=== PATIENT | female | born 1945 | race Caucasian/White ===

== ENCOUNTER 2016-02-25 16:51 | Inpatient (IN) | payer OTHER, MEDICARE ==
[~2016-02-25] VITALS: Ht 157.5 cm; Wt 56.7 kg
--- NOTE | 2016-02-25 17:25 | NUR ---
PT STATES SHE HAS A COLD THAT HAS SETTLED IN HER CHEST. PT STATES SHE HAS BEEN COUGHING UP GREEN SPUTUM AT TIMES. PT DENIES FEVERS. PT SENT IN BY URGENT CARE BECAUSE THEY DID AN EKG ON HER AND SHE WAS HAVING VENTRICULAR PREMATURE COMPLEXES. PT DENIES CHEST PAIN OR SOB.
--- NOTE | 2016-02-25 19:31 | ED INFLUENZA/URI COMPLAINT ---
History of Present Illness General Chief Complaint: General Adult Stated Complaint: SIB URGENT CARE FOR URI SYMTOMS, "HEART ISSUES" Source: patient, old records Exam Limitations: no limitations Vital Signs & Intake/Output Vital Signs & Intake/Output Vital Signs Date Time Temp Pulse Resp B/P Pulse O2 O2 Flow FiO2 Ox Delivery Rate 02/24 2316 99.0 120 20 136/64 93 Room Air 02/246 91 02/24 2154 99.4 02/24 2142 Room Air 02/24 2139 99.4 02/24 2049 101.5 02/24 1951 101.6 129 18 167/86 92 02/24 1950 91 02/24 1726 97.0 134 18 131/85 93 Room Air Allergies Coded Allergies: No Known Allergies (02/25/16) Reconcile Medications Aspirin (Ecotrin*) 325 MG TABLET. 1 TAB PO DAILY HEART/BLOOD (Reported) Triage Note: PT STATES SHE HAS A COLD THAT HAS SETTLED IN HER CHEST. PT STATES SHE HAS BEEN COUGHING UP GREEN SPUTUM AT TIMES. PT DENIES FEVERS. PT SENT IN BY URGENT CARE BECAUSE THEY DID AN EKG ON HER AND SHE WAS HAVING VENTRICULAR PREMATURE COMPLEXES. PT DENIES CHEST PAIN OR SOB Triage Nurses Notes Reviewed? yes Onset: Abrupt Duration: week(s): (1), constant Timing: recent history Severity: moderate Severity Numbers: 6 Prior Episodes/Possible Cause: no prior episodes No Modifying Factors: none Associated Symptoms: cough, fever/chills, nasal congestion, nasal drainage HPI: 70-year-old female presents sent in by urgent care for evaluation after she was seen there earlier today had a chest x-ray and EKG performed. The patient states that for the past week she's had a head cold that is now in her chest complaining of a productive cough of yellow to green sputum associated with intermittent shortness of breath. She is an active smoker however denies history of COPD or asthma. No chest pain or palpitations. She reports a subjective fevers and chills and reports since febrile here no sore throat no congestion at this time however states that the symptoms began with the above. She denies any abdominal pain nausea vomiting or diarrhea. Multiple sick contacts at home with similar symptoms (TIMI CARBAJAL,PAUL) Past History Travel History Traveled to [place] past 21 day No Medical History Any Pertinent Medical History? none Surgical History Surgical History: none Psychosocial History What is your primary language Iraqi Tobacco Use: Current Daily Use Daily Tobacco Use Amount/Type: => 5 Cigarettes daily ETOH Use: occasional use Illicit Drug Use: denies illicit drug use Family History Hx Contributory? No (PAUL VIRK) Review of Systems Review of Systems Constitutional: Reports: see HPI. All Other Systems: Reviewed and Negative Comments Review of systems: See HPI, All other systems negative. Constitutional, chills fever, no malaise no weight loss HEENT: No visual changes sore throat congestion, no ear pain Cardiovascular: No chest pain , no palpitation , no orthopnea no ankle swelling Skin, no jaundice no rashes, no change in skin Respiratory: dyspnea cough no sputum no hemoptysis GI: No nausea no vomiting, no diarrhea, no bloating/constipation : No dysuria No hematuria, no frequency, no discharge Muscle skeletal: No joint pain, no joint swelling, no back pain, no neck pain, Neurologic: No numbness no headache Psych: No stress Heme/endocrine: No bruising no bleeding Immunology: No lymphadenopathy, (PAUL VIRK) Physical Exam Physical Exam General Appearance: well developed/nourished, no apparent distress, alert, awake Ears, Nose, Throat: normal ENT inspection, moist mucous membrane, hearing grossly normal, Tympanic normal Comments: Well-developed well-nourished patient in no apparent distress. Head/Face: Atraumatic, no maxillary/frontal sinus tenderness, no facial swelling Eyes: PERRL, EOMI, no conjunctival injection. No nystagmus Ear:External auditory canal and Tympanic membranes clear, no erythema, no FB. Nose: atraumatic.Normal inspection: No bleeding, no septal hematoma Throat: Moist mucous membranes.Pharynx normal. No pharyngeal erythema/exudate seen. No stridor/drooling or assymetry. No swelling or edema. Neck: Supple, no lymphadenopathy, FROM Back: FROM, Nontender Cardiovascular: Tachycardic, regular rhythm no murmurs rubs or gallops, Respiratory: Chest nontender.There were no bony deformities, no asymmetry. No respiratory distress. Patient speaking in full complete sentences. wheezing, no rhonchi no rales Extremities: full range of motion Neuro: Alert and oriented x3 Skin: Warm & dry;No appreciable rash on exposed skin Psych: Mood affect normal, normal memory normal judgment. Core Measures Severe Sepsis Present: No Septic Shock Present: No (TIMI CARBAJAL,PAUL) Progress Differential Diagnosis: influenza, pneumonia, pharyngitis, sinusitis, bronchitis , viral syndrome, copd, asthma, pe, ami, electrolyte abnormality Plan of Care: Orders Procedure Date/time Status Regular Diet 02/25 B Active CBC WITHOUT DIFFERENTIAL 02/25 06 Active BASIC ELECTROLYTES PLUS BUN&CR 02/25 06 Active Saline Lock 02/24 233 Active Pathway - chart 02/24 2331 Active House Staff 02/24 2331 Active STREP PNEUMO URINARY ANTIGEN 02/24 2331 Active LEGIONELLA URINARY ANTIGEN 02/24 2331 Active LOWER RESPIRATORY CULTURE 02/24 233 Active Code Status 02/24 2332 Active Intake & Output 02/24 2317 Active OXYGEN SETUP (GEN) 02/24 230 Active Saline Lock 02/24 230 Active Admit to inpatient 02/24 2300 Active Vital Signs 02/24 2300 Active Activity/Ambulation 02/24 230 Active Code Status 02/24 2300 Complete Add-on Test (ER Only) 02/24 2254 Active Patient Data 02/24 2251 Active PHOSPHORUS 02/24 2042 Active MAGNESIUM 02/24 2042 Active LACTIC ACID 02/24 2042 Active GLYCOSYLATED HGB 02/24 204 Active Saline Lock 02/24 194 Active RAPID VIRAL INFLUENZA A 02/24 194 Complete BLOOD CULTURE 02/24 194 Active TROPONIN LEVEL 02/24 194 Active COMPREHENSIVE METABOLIC PANEL 02/24 194 Active CBC WITHOUT DIFFERENTIAL 02/24 194 Complete EKG 02/24 1700 Active TRC EVALUATION (GEN) 02/24 UNK Active Lab Add-on Test 02/24 UNK Active VTE Mechanical Prophylaxis 02/24 UNK Active Vital Signs 02/24 UNK Active Intake & Output 02/24 UNK Active Current Medications Sig/Donato Start time Last Medication Dose Stop Time Status Admin Azithromycin 500 MG 0 02/250 AC (Zithromax) Dextrose/Water 250 ML (D5W) Ceftriaxone Sodium 1,000 MG 0 02/25 2200 AC (Rocephin) Methylprednisolone 20 MG Q6 02/25 0600 UNVr (Solumedrol) Acetaminophen 650 MG Q6P PRN 02/24 2330 AC (Tylenol) Ibuprofen 600 MG Q6P PRN 02/24 2330 UNVr (Motrin) Oxycodone HCl 5 MG Q6H PRN 02/24 233 UNVr (Roxicodone) Heparin Sodium 5,000 UNIT Q8 02/24 2321 UNVr (Porcine) Laboratory Tests 02/25/162041: Hemoglobin A1c Pending 02/25/162041: Anion Gap 14, Estimated GFR > 60, BUN/Creatinine Ratio 18.6, Glucose 144 H, Lactic Acid 0.7, Calcium 8.2 L, Phosphorus Pending, Magnesium Pending, Total Bilirubin 0.7, AST 27, ALT 33, Alkaline Phosphatase 95, Troponin I < 0.01, Total Protein 5.9 L, Albumin 3.0 L, Globulin 2.9, Albumin/Globulin Ratio 1.0 L, CBC w Diff NO MAN DIFF REQ, RBC 3.73 L, MCV 89.8, MCH 30.5, RDW 12.8, MPV 9.3, Gran % 87.4 H, Lymphocytes % 6.4 L, Monocytes % 6.1, Eosinophils % 0, Basophils % 0.1, Absolute Granulocytes 13.7 H, Absolute Lymphocytes 1.0 L, Absolute Monocytes 1.0 H, Absolute Eosinophils 0, Absolute Basophils 0, PUBS MCHC 34.0 Microbiology 02/24 2331 URINE ROUT: Legionella Antigen - ORD 02/24 2331 URINE ROUT: Streptococcus pneumoniae Antigen (M - ORD 02/24 2331 LOWER RESP: Respiratory Culture - ORD 02/24 2331 LOWER RESP: Gram Stain - ORD 02/24 2134 BLOOD: Blood Culture - RECD 02/24 2041 BLOOD: Blood Culture - RECD 02/25/2016 7:50:37 PM patient was seen by me immediately being upon back to pod 3. Labs ordered DuoNeb ordered patient febrile 100.8 on my a evaluation xray reviewed with dr fernandes- hyperinflated lungs no obvious pna 02/25/2016 9:42:19 PM repeat evaluation discussed with patient at length all of her lab results sats remain 91-92%. Patient has not seen a primary physician in 10 years no history of known COPD or asthma however she is an active smoker given fever leukocytosis breathing I discussed with her that I believe premature discharge would BE medically harmful and I was openly recommending admission which at this time the patient is refusing. We will repeat the breathing treatment. Discussed with her the harms of leaving prematurely and what can happen potentially. We will reevaluate after second breathing treatment Jelenan 1 g azithromycin 500 mg IV ordered 1045 pt sats 90%-91% d/w pt again that i believedischarge would be harmful, pt at thsi time now accepting admission, case d/w dr dias will admit (PAUL VIRK) Initial ED EKG: SINUS TACH AT 120, NO ACUTE st SEGMENT CHANGES pvc, NORMAL AXIS (PAUL VIRK) Departure Departure Time of Disposition: 2238 Disposition: STILL A PATIENT Condition: Stable Clinical Impression Primary Impression: Bronchitis Referrals: PEPE DUTTA,SUZANNE Briceño (PCP/Family) Additional Instructions: Levaquin as directed. Medrol Dosepak as directed pro-air as directed. Close follow-up with primary care physician dr campbell this week. As discussed it was recommended by myself that you be admitted to the hospital given her fever or elevated white blood cell count and your symptoms. You've declined admission at this time returning immediately if you change your mind you develop worsening of her symptoms despite medications or you have any other concerns. Your medications were sent to your pharmacy. Stop smoking Departure Forms: Customer Survey General Discharge Information Admission Note Spoke With: YASMIN DIAS MD Documentation of Exam: Documentation of any treatments & extenuating circumstances including Concerns Regarding Discharge (functional status, medication knowledge or non-compliance, living conditions, etc.) that warrant an admission rather than observation:pt hypoxic with ambulation, premature discharge would be medically harmful, iv steroids, iv abx, resp tx prn, pt active smoker with most likely undiagnosed copd, remains febrile tacycardic, i believe premature discharge would be medically harmful, poor candidate for by mouth antibiotics and steroids (PAUL VIRK) PA/CONSTRUCTION CONSULTANT Co-Sign Statement Statement: ED Attending supervision documentation- x I saw and evaluated the patient. I have also reviewed all the pertinent lab results and diagnostic results. I agree with the findings and the plan of care as documented in the PA's/CONSTRUCTION CONSULTANT's documentation. [] I have reviewed the ED Record and agree with the PA's/CONSTRUCTION CONSULTANT's documentation. [] Additions or exceptions (if any) to the PAs/CONSTRUCTION CONSULTANT's note and plan are summarized below: [] (BAILEY DUTTA,WILMER)
--- NOTE | 2016-02-25 19:32 | NUR ---
TO ROOM 21 IN W/C. PT THEN NOTED AMBULATING TO RESTROOM DOWN THE ATKINSON WITH STEADY GAIT WITHOUT APPARENT DISTRESS.
[2016-02-25] MEDS ORDERED: ASPIRIN EC325 M2 PO (19:34)
--- NOTE | 2016-02-25 19:41 | NUR ---
SOLOMON CAPELLAN AT BEDSIDE FOR EVAL
[2016-02-25 20:49] LABS: ABSOLUTE BASOPHIL COUNT 0 /CUMM (0.0-0.2); ABSOLUTE EOSINOPHIL COUNT 0 /CUMM (0.0-0.7); ABSOLUTE GRANULOCYTE CT 13.7 /CUMM (1.4-6.5); BASOPHIL % 0.1 % (0.0-2.0); EOSINOPHIL % 0 % (0-5); HEMATOCRIT 33.5 % (37-47); MEAN CORPUSCULAR HGB 30.5 PG (27.0-31.0); MEAN CORPUSCULAR VOLUME 89.8 FL (81.0-99.0); MEAN PLATELET VOLUME 9.3 FL (7.4-10.4); PLATELET COUNT 157 /CUMM (130-400); RBC DISTRIBUTION WIDTH 12.8 % (11.5-14.5); RED BLOOD CELL CT 3.73 /CUMM (4.20-5.40); WHITE BLOOD CELL COUNT 15.7 /CUMM (4.8-10.8)
--- NOTE | 2016-02-25 20:51 | NUR ---
1ST SET BLOOD CX AND BLOODWORK (SST/LAV/ARIZMENDI/BLUE/PINK) AND FLU SWAB COLLECTED AND SENT. IVF RUNNING. MEDICATED PER EMAR.
[2016-02-25 20:52] LABS: GRANULOCYTE % 87.4 % (42.2-75.2)
--- NOTE | 2016-02-25 21:42 | NUR ---
RESP CALLED FOR CHRISTAB.
--- NOTE | 2016-02-25 21:56 | NUR ---
PT MEDICATED WITH ROCEPHIN, AND ZITHROMAX INFUSING PER EMAR.
--- NOTE | 2016-02-25 23:03 | History & Physical ---
ANDREAS DUTTAYANCI 02/25/16 4123: General Information and HPI MD Statement: I have seen and personally examined KASANDRA BAH and documented this H&P. The patient is a 70 year old F who presented with a patient stated chief complaint of [head and chest cold]. Source of Information: patient Exam Limitations: no limitations History of Present Illness: 70-year-old female with no significant PMH presented to the ED for CC of head and chest cold, and asked by urgent care clinic to get her heart checked out. Pt was in her normal state of health until Monday, when she started feeling a little achy, with cough productive of thick green sputum. She has been taking robitussin without relief. The cough keeps her up at night and she feels better using 2 pillows rather than her usual 1 pillow to sleep. She also complains of nasal congestion and dry mouth. She has some palpitations. She also gets short of breath worse on lying down and on exertion, especially when she is coughing. 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 She has nevere received flu or pneumonia vaccine. No recent travel. She denies fever or chills. Denies chest pain. She went to the urgent care clinic today as her symptoms have not gotten better. She was found to have PVCs on EKG and was told to get it evaluated further in the ED. She was found to be wheezing in the ED, and felt better after the second duoneb tx in the ED. FH: no significant FH SH: lives at home with , independent, smoke 5-10cig / day X 40 years, smoke indoor and outdoor. Drinks wine occassionally. Denies illicit drug use. Allergies: none Meds: aspirin for headache, robitussing for cough Allergies/Medications Allergies: Coded Allergies: No Known Allergies (02/25/16) Home Med list Aspirin (Ecotrin*) 325 MG TABLET. 1 TAB PO DAILY HEART/BLOOD (Reported) Past History Travel History Traveled to [place] past 21 day No Surgical History Surgical History: cataract surgery Past Family/Social History Family History Relations & Conditions if any Relation not specified for: *No pertinent family history Psychosocial History Where do you live? Home Who Do You Live With? spouse Services at Home: None Primary Language: Maltese Smoking Status: Current Everyday Smoker ETOH Use: occasional use Illicit Drug Use: denies illicit drug use Functional Ability ADLs Independent: dressing, eating, toileting, bathing. Ambulation: independent IADLs Independent: shopping, housework, finances, food prep, telephone, transportation , medication admin. Review of Systems Review of Systems Constitutional: Denies: chills, fever. EENTM: Reports: nasal congestion. Denies: visual changes. Cardiovascular: Reports: orthopena, palpitations. Denies: chest pain, edema. Respiratory: Reports: cough, short of breath, sputum production. GI: Denies: abdominal pain, bloating, constipation, diarrhea, nausea, bloody stool, changes in stool, vomiting. Genitourinary: Denies: dysuria. Exam & Diagnostic Data Last 24 Hrs of Vital Signs/I&O Vital Signs Date Time Temp Pulse Resp B/P Pulse O2 O2 Flow FiO2 Ox Delivery Rate 02/24 2316 99.0 120 20 136/64 93 Room Air 02/246 91 02/24 2154 99.4 02/24 2142 Room Air 02/24 2139 99.4 02/24 2049 101.5 02/24 1951 101.6 129 18 167/86 92 02/24 1951 91 02/24 1726 97.0 134 18 131/85 93 Room Air Intake & Output 02/25 0800 02/25 0000 02/24 1600 Intake Total 1350 Output Total Balance 1350 Intake, IV 1350 Patient 54.431 kg Weight Physical Exam General Appearance Alert, Oriented X3, Cooperative, No Acute Distress Skin seborrheic keratosis on the back HEENT Atraumatic, PERRLA, EOMI, Mucous Membr. moist/pink, tender frontal and maxillary sinus , postnasal drip Neck Supple, No JVD, +2 Carotid Pulse wo Bruit Lymphatic Axillary nl, Cervical nl Cardiovascular Regular Rate, Normal S1, Normal S2, No Murmurs, Gallops, Rubs, tachycardic Lungs diffuse decreased breath sound, mild accessory muscle use Abdomen Normal Bowel Sounds, Soft, No Tenderness Neurological Normal Speech Extremities No Edema Vascular Normal Pulses, Pulses Symmetrical Last 24 Hrs of Labs/Alvin: Laboratory Tests 02/25/162041: Hemoglobin A1c Pending 02/25/162041: Anion Gap 14, Estimated GFR > 60, BUN/Creatinine Ratio 18.6, Glucose 144 H, Lactic Acid 0.7, Calcium 8.2 L, Phosphorus 2.4 L, Magnesium 1.6, Total Bilirubin 0.7, AST 27, ALT 33, Alkaline Phosphatase 95, Troponin I < 0.01, Total Protein 5.9 L, Albumin 3.0 L, Globulin 2.9, Albumin/Globulin Ratio 1.0 L, CBC w Diff NO MAN DIFF REQ, RBC 3.73 L, MCV 89.8, MCH 30.5, RDW 12.8, MPV 9.3, Gran % 87.4 H, Lymphocytes % 6.4 L, Monocytes % 6.1, Eosinophils % 0, Basophils % 0.1, Absolute Granulocytes 13.7 H, Absolute Lymphocytes 1.0 L, Absolute Monocytes 1.0 H, Absolute Eosinophils 0, Absolute Basophils 0, PUBS MCHC 34.0 Microbiology 02/24 2331 URINE ROUT: Legionella Antigen - ORD 02/24 2331 URINE ROUT: Streptococcus pneumoniae Antigen (M - ORD 02/24 2331 LOWER RESP: Respiratory Culture - ORD 02/24 2331 LOWER RESP: Gram Stain - ORD 02/24 2134 BLOOD: Blood Culture - RECD 02/24 2041 BLOOD: Blood Culture - RECD Diagnostic Data EKG Results Sinus tachycardia, rate 121 CXR Results No PNA Assessment/Plan Assessment: 70-year-old female with no significant PMH presented to the ED for CC of head and chest cold, and asked by urgent care clinic to get further evaluation of PVCs found on EKG. Pt was admitted to and the following problems addressed. # Upper respiratory infection with acute bronchitis # Possible COPD exacerbation? (significant smoking hx, never been diagnosed with COPD) - rapid flu negative - CXR did not reveal PNA. Pt has not received PNA vaccine. - Spiked temp to 101.6 in the ED . WBC 15.7 . - Given duoneb x 2 in ED - Given 1 time 125 mg solumedrol in ED - Given ceftriaxone and azithromycin in ED * Follow BC X 2 , LRC, urine legionella, strep pneumo, UA, UC * Continue azithromycin * Continue methylprednisolone 20 mg q6 * Mucinex 600 q 12 * Repeat CXR tomorrow * Consider pulm consult in am * PFT as outpatient # Hypokalemia - K 3.3 * Give one time 40 meq kdur # Hypomagnesiumia - Mg 1.6 * Mag ox 400 daily # Hypophosphatemia - Phos 2.4 * Neutrophos 250 mg PC and bedtime X 3 doses # Tachycardia, could be secondary to albuterol administration or fever - trop < 0.01 - probnp 2640 H * Repeat EKG and trop at 6am * Consider echocardiogram # Nicotine dependence - refused nicotine patch Mild pp Diet: regular DVT ppx: heparin and alps FULL CODE As Ranked By This Provider Problem List: 1. Upper respiratory infection with cough and congestion Core Measures/Miscellaneous Acute Coronary Syndrome ACS Diagnosis: No Cerebrovascular Accident CVA/TIA Diagnosis: No Congestive Heart Failure CHF Diagnosis: No Venous Thromboembolism VTE Risk Factors: Acute medical illness, Age > 40, Smoking VTE Prophylaxis Ordered Inpt: Mech & Pharm No Mech VTE prophylaxis d/t: No contraindications No VTE Pharm Prophylaxis d/t: No contraindications VTE Diagnosis: No VTE Type: NONE VTE Confirmed by (Test): NONE Severe Sepsis Severe Sepsis Present: No Septic Shock Septic Shock Present: No Miscellaneous Documentation Attending Case Discussed With: YASMIN MASSEY MD Primary Care Physician: SUZANNE CANTU MD Patient sees these Specialists none Level of Patient Care: General Medicine TONE BARRIGA 02/26/16 0139: Resident Review Statement Resident Statement: examined this patient, discussed with manager internship, agreed with manager internship, discussed with family, reviewed EMR data (avail), reviewed images, amended to note Other Findings: This is 70-year-old female with no significant past medical history presented to the ED for urgent care unit with a chief complaint of head and chest cold, and asked by urgent care clinic to get her heart checked out. 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 Reports some wheezing. She denies any fever, chills, chest pain or discomfort, abdominal pain , diarrhea, vomiting, constipation. Physical examination, laboratory imaging as above. She smoked 1 pack per day for 40 years. Problem list: -Acute bronchitis with undiagnosed possible COPD -Hypokalemia, hypomagnesemia, hypophosphatemia -Leukocytosis. -Tachycardia. Plan: -Admit patient to general medicine floor -Vitals every shift -Continue IV ceftriaxone and IV azithromycin -Start IV Solu-Medrol 20 mg every 6 hours -Start patient on Mucoinex, TRC nebs as needed -Streptococcus, Legionella urine antigen, sputum culture. -Repeat chest x-ray in the morning for evaluation -Potassium, magnesium and phosphate supplement -Repeat EKG in the morning -Repeat CBC and basic panel electrolytes in the morning -Smoking cessation consultation -Regular diet -Pain pathway -DVT prophylaxis subcutaneous heparin -Full code YASMIN MASSEY 02/26/16 0205: Attending MD Review Statement Attending Statement Attending MD Statement: examined this patient, discuss w/resident/PA/PATHOLOGY LABORATORY AIDES TEACHER, agreed w/resident/PA/PATHOLOGY LABORATORY AIDES TEACHER, discussed with family, reviewed EMR data (avail), reviewed images, amended to note Attending Assessment/Plan: CC: Sent by urgent care for fever or productive cough and increased heart rate PMH: None, not on any medication except aspirin Patient started to notice upper respiratory and sinus congestion, followed by productive cough with yellow-green sputum. She also developed labored breathing according to her , patient increasing 2 pillows to sleep after this symptom started. She was not getting better so she went to urgent care where she was found to have increased heart rate and was sent to ER for evaluation. 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 She denies chest pain, chest congestion, leg swelling, dyspnea on exertion, palpitation, dizziness. Long-standing smoking history. Vitals: T max 101.6, HR in 120s, RR 20, BP and O2 saturation in acceptable range. On examination: A O 3, mild respiratory distress, no JVD, no lymphadenopathy, pharyngeal congestion present, sinus tenderness present over the maxillary sinus. CVS: S1-S2, tachycardia, no murmurs. RS: Diffusely decreased breathing sounds. Abdomen: Soft, NT, ND, bowel sounds present. No pedal edema, no obvious skin rashes. Labs: WBC 15.1, hemoglobin 11.4, potassium 3.3, otherwise BMP and LFT unremarkable. Anion gap 14, lactate 0.7 Imaging: Patient has a CD with her recent chest x-ray done today in urgent care reviewed by ER physician negative for pneumonia. EKG shows sinus tachycardia with intermittent premature complexes. A and P #1 suspected acute bronchitis: Precipitated by URI, patient may have baseline undiagnosed COPD. Patient is very tight on auscultation chest, even with nebulization treatment. Continue IV methylprednisolone, azithromycin, sputum cultures, nebulization treatments. Patient will need outpatient PFT once stabilized. #2 fever: Probably secondary to upper respiratory infection, check blood culture , sputum culture, UA if not done. Continue azithromycin. Repeat chest x-ray tomorrow to rule out any developing pneumonia. #3 tachycardia: patient has sinus tachycardia, this can be secondary to fever or albuterol treatment. Does not have any elevated JVD, no pleuritic chest pain, no chest heaviness. Initial troponin negative. Repeat EKG every 8 hourly 2. Check proBNP. Blood pressure in normal range, no acute volume loss or bleeding as a cause to precipitate tachycardia. Continue gentle hydration 75 mL per hour for 1 L then stop. #4 DVT prophylaxis with Lovenox, adequate pain control.
--- NOTE | 2016-02-25 23:27 | NUR ---
HOUSE STAFF IN TO EVAL PT
--- NOTE | 2016-02-25 23:53 | NUR ---
PATIENT ASSIGNED TO ROOM 232-1
--- NOTE | 2016-02-26 00:20 | NUR ---
REPORT GIVEN TO DARIA BHATIA.
[2016-02-26 01:40] VITALS: BP 120/60
--- NOTE | 2016-02-26 01:40 | Admission Certification ---
Admission Certification Certification Statement - As attending physician, I certify that at the time of - admission, based on clinical presentation, severity of - symptoms, need for further diagnostic testing and - therapeutic interventions, and risk of adverse outcomes - without in-hospital treatment, in my clinical assessment, - this patient requires an acute hospital stay for a minimum - of two nights or longer. I have also considered psychsocial - factors such as support system, advanced age, financial - issues, cognitive issues, and failed out-patient treatments, - past re-admission history, safety of patient, and lack of - compliance as applicable. Specific rationale supporting this admission is: Fever, acute bronchitis, tachycardia
[2016-02-26 06:39] VITALS: BP 138/70
[2016-02-26 08:02] LABS: ABSOLUTE BASOPHIL COUNT 0 /CUMM (0.0-0.2); ABSOLUTE EOSINOPHIL COUNT 0 /CUMM (0.0-0.7); ABSOLUTE GRANULOCYTE CT 11.4 /CUMM (1.4-6.5); ABSOLUTE LYMPH COUNT 0.5 /CUMM (1.2-3.4); ABSOLUTE MONOCYTE COUNT 0.1 /CUMM (0.10-0.60); BASOPHIL % 0 % (0.0-2.0); EOSINOPHIL % 0 % (0-5); HEMATOCRIT 31.8 % (37-47); MEAN CORPUSCULAR HGB CONC 34.3 G/DL (33.0-37.0); MEAN CORPUSCULAR VOLUME 90.3 FL (81.0-99.0); MEAN PLATELET VOLUME 9.7 FL (7.4-10.4); PLATELET COUNT 144 /CUMM (130-400); RED BLOOD CELL CT 3.53 /CUMM (4.20-5.40); WHITE BLOOD CELL COUNT 11.9 /CUMM (4.8-10.8)
--- NOTE | 2016-02-26 08:18 | PN- Housestaff ---
See Addendum Subjective Follow-up For: Shortness of breath elevated Pro-BNP w/o Hx of Cardiomypathy Bronchitis Complaints: no complaints Subjective: jaimie was visietd and interviewed today. She is very anxious about the fact that she was " unnecessarily" admitted to the hospital. She is not offering any particular complaints. In R/A, in no acute distress. VS are stable. Review of Systems Constitutional: Denies: chills, diaphoresis, fever, malaise, weakness, unexplained weight loss. EENTM: Denies: blurred vision, double vision, visual changes, eye pain, eye drainage, eye tearing, icterus, ear discharge, ear pain, ear redness, hearing changes, nasal congestion, epistaxis, nasal pain, throat pain, throat swelling, mouth pain, tooth pain. Cardiovascular: Denies: chest pain, edema, orthopena, palpitations, peripheral edema, syncope. Respiratory: Denies: cough, hemoptysis, orthopnea, short of breath, sputum production, stridor, wheezing. Gastrointestinal: Denies: abdominal pain, bloating, constipation, diarrhea, distention, bowel incontinence, melena, nausea, bloody stool, changes in stool, vomiting, steatorrhea. Genitourinary: Denies: discharge, dysuria, frequency, hematuria, hesitation, nocturia, pain, urgency. Musculoskeletal: Denies: back pain, gout, joint pain, joint swelling, muscle pain, muscle stiffness, neck pain. Objective Last 24 Hrs of Vital Signs/I&O Vital Signs Date Time Temp Pulse Resp B/P Pulse O2 O2 Flow FiO2 Ox Delivery Rate 02/25 0639 97.4 93 20 138/70 92 Room Air 02/25 0140 97.5 111 22 120/60 93 Room Air 02/24 2316 99.0 120 20 136/64 93 Room Air 02/24 2216 91 02/24 2154 99.4 02/24 2142 Room Air 02/24 2139 99.4 02/24 2049 101.5 02/24 1951 101.6 129 18 167/86 92 02/24 1950 91 02/24 1726 97.0 134 18 131/85 93 Room Air Intake & Output 02/25 1600 02/25 0800 02/25 0000 Intake Total 1350 Output Total Balance 1350 Intake, IV 1350 Patient 120 lb Weight Physical Exam General Appearance: Alert, Oriented X3, Cooperative, No Acute Distress Skin: No Rashes, No Breakdown, No Significant Lesion HEENT: Atraumatic, PERRLA, EOMI, Mucous Membr. moist/pink Lungs: Clear to Auscultation, Normal Air Movement Assessment/Plan Assessment: 70 y/o woman without significant past medical history presented with labored breathing and worsening orthopnea, preceded by her upper respiratory tract symptoms infection (productive cough with green sputum denies fever and chills). 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 Recently had an outbreak of upper respiratory tract infection. He was evaluated in the emergency room and found to be tachycardic. She denies chest pain, chest congestion, leg swelling, dyspnea on exertion, palpitation, dizziness. Long-standing smoking history. Pertinent findings in Physical exam: Alert and oriented 3 , lying comfortably in bed 45 elevation the head , in room air in no acute distress ; head and neck : No JVD mucous membranes are moist and pink ; CVS: S1-S2, tachycardia, no murmurs. RS: Decreased breathe sounds no crackles no wheezes. The remainder of the physical exam was unremarkable. Pertinent findings in lab Labs: WBC 1.9, hemoglobin 10.4, Hct: 31.8 potassium 4.1, pro-BNP: 2640 EKG: sinue Tachycardia, Short [place] interval, No acute st T segment change, No Left or right BB, P waves are uniform and normal in apearance A and P 70-year-old man with history of prolonged smoking/not clear medical record presented with worsening the septae on exertion and orthopnea, was preceded by an acute upper respiratory tract infection. List of differential diagnosis: #1 bronchitis, #2 COPD(long-time smoker; no official diagnosis of COPD); #1 suspected acute bronchitis: * Patient could be switched to by mouth prednisone 40 mg for 5 days * Continue IV antibiotics * Obtain a chest x-ray * Refer to employee health nurse to follow-up; patient needs baseline pulmonary function test and his spirometry * Low-dose CT scan for cancer screening as an outpatient * Continue guanfenesine ER Tab 600 Q12 * Albuterol inhaler 3 mL every 6h as needed * TRC nebulizer [id number] as needed #2 fever: Probably secondary to upper respiratory infection, check blood culture , sputum culture, UA if not done. * Continue azithromycin * CXR- she refused #3 tachycardia: patient has sinus tachycardia, and orthopnea+ elevated pro-bnp and Hx of smoking+ ??? DM and HTN * Likehood of Heart failure; in the setting of Ischemic cardiomyopathy * patient is not agreable with any work up: echo and cardiology visit #4 Hyponatremia- patientr refused work up #5 DVT prophylaxis with Lovenox, adequate pain control. Problem List: 1. Bronchitis 2. Elevated brain natriuretic peptide (BNP) level Pain Ratin Pain Location: none Pain Goal: pain free Pain Plan: tylenol Tomorrow's Labs & Rationales: none Discharge Plan Discharge Disposition: home Stable for Discharge? Yes Anticipated Discharge (Day): today
[2016-02-26 09:17] LABS: GRANULOCYTE % 95.4 % (42.2-75.2)
--- NOTE | 2016-02-26 10:57 | Patient Discharge Instructions ---
Discharge Instructions General Discharge Information You were seen/treated for: Bronchitis elevated pro-BNP electrolyte imbalance ?? DM ?? COPD Special Instructions: #1 please follow-up with Dr. Ramirez to establish primary care #2 is follow-up with Dr. Hernandez for cardiac workup #3 Please follow up with Dr. Trivedi upon discharge Diet Continue normal diet: No Recommended Diet: Heart Healthy Activity Full Activity/No Limits: Yes Activity Self Limited: Yes Acute Coronary Syndrome Inclusion Criteria At DC or during hospital stay patient has or had the following: ACS DIAGNOSIS No Discharge Core Measures Meds if any: Prescribed or Continued at Discharge Meds if any: NOT Prescribed or Continued at Discharge Congestive Heart Failure Inclusion Criteria At DC or during hospital stay patient has or had the following: CHF DIAGNOSIS No Discharge Core Measures Meds if any: Prescribed or Continued at Discharge Meds if any: NOT Prescribed or Continued at Discharge Cerebrovascular accident Inclusion Criteria At DC or during hospital stay patient has or had the following: CVA/TIA Diagnosis No Discharge Core Measures Meds if any: Prescribed or Continued at Discharge Meds if any: NOT Prescribed or Continued at Discharge Venous thromboembolism Inclusion Criteria VTE Diagnosis No VTE Type NONE VTE Confirmed by (Test) NONE Discharge Core Measures - Per Current guidelines, there needs to be overlap - treatment for the first 5 days of Warfarin therapy. - If discharged on Warfarin prior to 5 days of - overlap therapy, the patient will need to be - assessed for post discharge needs including - *Post discharge parental anticoagulation - *Warfarin and/or parental anticoagulation education - *Follow up date to check INR post discharge At least 5 days overlap therapy as Inpatient No Meds if any: Prescribed or Continued at Discharge Note: Overlap Therapy is Warfarin and Anticoagulant Meds if any: NOT Prescribed or Continued at Discharge
[2016-02-26] MEDS ORDERED: GUAIFENESIN ER600 MG PO (10:59)
[2016-02-26] MEDS ORDERED: AZITHROMYCIN250 M1 PO (10:59)
[2016-02-26] MEDS ORDERED: PREDNISONE20 M1 PO (10:59)
--- NOTE | 2016-02-26 11:10 | Discharge Summary ---
Visit Information Visit Dates Admission Date: 02/25/16 Discharge Date: 02/28/16 Hospital Course Course Attending Physician: YASMIN MASSEY MD Primary Care Physician: no Known PCP Hospital Course: 70-year-old man with history of prolonged smoking/not clear medical record presented with worsening the septae on exertion and orthopnea, was preceded by an acute upper respiratory tract infection. List of differential diagnosis: #1 bronchitis, #2 COPD(long-time smoker; no official diagnosis of COPD); #1 acute bronchitis with fever and leukocytosis; out patient CXR: no evidence of pneumonia:she was started on IV Azithro and IV cefteriaxone in the ED and IV fluid was initiated as well. Patient Leukocytosis improved and, her antibiotics were switched to PO Azithro and Po prednisone.Plan to follow up with PCP (Dr. James DUTTA) as an out patient. #2 Elevated pro-BNP and tachycardia and worsening orthopnea: patient has sinus tachycardia, and orthopnea+ elevated pro-bnp and Hx of smoking+ ??? DM and HTN . In constalation of Hx and lab findings increases the likehood of heart failure 2 /2 Ischemic cardiomyopathy. Patient, needs Echocardiography. She intend to follow up with a drafter electrical as an outpatient. Information was provided. #4 Hyponatremia- patient refused work up. She is stable. Follow up with PCP Allergies: Coded Allergies: No Known Allergies (02/25/16) Pertinent Lab Results: Pertinent findings in lab Labs: WBC 1.9, hemoglobin 10.4, Hct: 31.8 potassium 4.1, pro-BNP: 2640 EKG: sinue Tachycardia, Short [place] interval, No acute st T segment change, No Left or right BB, P waves are uniform and normal in apearance Disposition Summary Disposition Principal Diagnosis: Bronchitis Elevated proBNP Additional Diagnosis: Electrolyte imbalance: hypomagnesemia hypophosphatemia and borderline hyponatremia sodium 133 Discharge Disposition: home or self care Discharge Instructions General Discharge Information Code Status: Full Code Patient's Diet: Heart healthy diet Patient's Activity: Full; as tolerated Follow-Up Instructions/Appts: Please follow-up with Dr. James DUTTA to establish primary care Follow with Dr. Hernandez for cardiac work up Medications at Discharge Discharge Medications: Continue taking these medications: Aspirin (Ecotrin*) 325 MG TABLET. 1 Tablet ORAL DAILY Comments: NOT TAKEN IN HOSPITAL Start taking the following new medications: Azithromycin (Azithromycin) 250 MG TABLET 1 Tablet ORAL DAILY Days = 2 No Refills Comments: Last Taken: 02/28/16 Time: 9 AM Guaifenesin (Guaifenesin ER) 600 MG TAB.ER.12H 1 Tablet ORAL EVERY 12 HOURS Qty = 12 No Refills Comments: Last Taken: 02/28/16 Time: 9 AM Fluticasone Propionate (Fluticasone Propionate) 50 MCG/ACTUATION SPRAY.SUSP 2 [place] In the nose DAILY Days = 7 No Refills Comments: Last Taken: 02/28/16 Time: 9AM Sodium Chloride (Deep Sea) 0.65 % SPRAY 2 [place] In the nose EVERY 4 HOURS NEEDED as needed for CONGESTION Days = 7 No Refills Comments: Last Taken: 02/28/16 Time: 9AM Prednisone (Prednisone) 5 MG TABLET 1 Tablet ORAL See Instructions Qty = 13 No Refills Instructions: On Take 02/28 30 MG 03/01 20 MG 03/02 10 MG 03/03 5 MG Then Stop Comments: NOT GIVEN IN HOSPITAL Copies To: JONATHAN DUTTA,Hank MCCOY; JAMES DUTTA,MANINDER Attending MD Review Statement Documenting Attending: CLARENCE DUTTA,PRIYANK Other Findings: On the day of discharge which was 02/28/2016, patient was overall feeling much better. Visitation of nasal sprays her nasal stuffiness has improved. She had an echocardiogram done and the results can be followed as an outpatient and Dr. Hernandez's office. She was discharged on prednisone taper, azithromycin to complete the course. She will follow per Dr. Hernandez as well as Dr. Upton as an outpatient. She will also follow-up with her primary care doctor as an outpatient.
--- NOTE | 2016-02-26 11:33 | NUR ---
O2 SAT 89-90 ON RA WITH AMBULATION, NOTIFIED, CONTINUE TO MONITOR
--- NOTE | 2016-02-26 12:04 | NUR ---
0120 ADMITTED FROM ER VIA W/C ACCOMPANIED BY TO ROOM 232.A&OX3 FROM HOME.DENIES PAIN.HL IN RFA.ON RA.NPC.CALL AGUERO IN REACH.ORIENTED TO ROOM & SURROUNDINGS.ASSISTED TO BED & MADE COMFORTABLE.SETTLED TO SLEEP.
[2016-02-26 14:47] VITALS: BP 120/60
--- NOTE | 2016-02-26 16:59 | Cons- Cardiology ---
General Information and HPI Consulting Request Date of Consult: 02/26/16 Requested By: YASMIN MASSEY MD Reason for Consult: Dyspnea; elevated proBNP; abnormal ECG Source of Information: family, old records Exam Limitations: no limitations History of Present Illness: 70-year-old female with no significant PMH presented to the ED for CC of head and chest cold, and asked by urgent care clinic to get her heart checked out. Pt was in her normal state of health until Monday, when she started feeling a little achy, with cough productive of thick green sputum. She has been taking robitussin without relief. The cough keeps her up at night and she feels better using 2 pillows rather than her usual 1 pillow to sleep. She also complains of nasal congestion and dry mouth. She has some palpitations. She also gets short of breath worse on lying down and on exertion, especially when she is coughing. At the moment the patient claims to be feeling fine and is anxious to leave. She denies any known cardiovascular history but does not frequent doctors. She understands that there may be underlying cardiac issues and she agrees to followup with me as an outpatient for further evaluation. Allergies/Medications Allergies: Coded Allergies: No Known Allergies (02/25/16) Home Med List: Aspirin (Ecotrin*) 325 MG TABLET.DR 1 TAB PO DAILY HEART/BLOOD (Reported) Azithromycin 250 MG TABLET 1 TAB PO DAILY Bronchitis Guaifenesin (Guaifenesin ER) 600 MG TAB.ER.12H 1 TAB PO Q12 Bronchitis Prednisone 20 MG TABLET 1 TAB PO DAILY Bronchitis Current Medications: Current Medications Sig/Donato Start time Last Medication Dose Route Stop Time Status Admin Acetaminophen 650 MG Q6P PRN 02/24 2330 AC PO Acetaminophen 0 .STK-MED ONE 02/25 2024 DC PO Acetaminophen 0 .STK-MED ONE 02/25 2020 DC PO Acetaminophen 975 MG ONCE ONE 02/24 1999 DC 02/24 PO 02/24 Acetaminophen/ 1 TAB Q6P PRN 02/25 1030 AC Hydrocodone Bitart PO Albuterol Sulfate 3 ML Q6 PRN 02/25 1030 AC INH Albuterol Sulfate 3 ML ONCE ONE 02/24 2145 DC 02/24 INH 02/24 2146 2216 Albuterol Sulfate 3 ML ONCE ONE 02/24 1999 DC 02/24 INH 02/25 2000 194 Azithromycin 500 MG 2200 02/25 2200 CAN Dextrose/Water 250 ML IV Azithromycin 250 MG DAILY 02/25 1031 AC 02/25 PO 03/01 1001 1331 Azithromycin 500 MG ONCE ONE 02/24 2145 DC 02/24 Dextrose/Water 250 ML IV 02/24 2244 2155 Ceftriaxone Sodium 1,000 MG 2200 02/25 2200 CAN IV Ceftriaxone Sodium 0 .STK-MED ONE 02/24 2146 DC .ROUTE Ceftriaxone Sodium 1,000 MG ONCE ONE 02/24 2145 DC 02/24 IV 02/24 2146 2155 Guaifenesin 600 MG Q12 02/25 0100 AC 02/25 PO 0236 Heparin Sodium 5,000 UNIT Q8 02/25 1400 AC (Porcine) SC Heparin Sodium 0 .STK-MED ONE 02/24 2348 DC (Porcine) .ROUTE Heparin Sodium 5,000 UNIT Q8 02/24 2321 AC 02/25 (Porcine) SC 1331 Ibuprofen 600 MG Q6P PRN 02/24 2330 DC PO Ipratropium [place] 2.5 ML ONCE ONE 02/24 2145 DC 02/24 INH 02/24 2146 2216 Ipratropium [place] 2.5 ML ONCE ONE 02/24 2000 DC 02/24 INH 02/25 2000 194 Magnesium Oxide 400 MG DAILY 02/25 0200 AC 02/25 PO 0237 Methylprednisolone 40 MG DAILY 02/25 1156 AC 02/25 IV 1331 Methylprednisolone 20 MG Q6 02/25 0600 DC 02/25 IV 0657 Methylprednisolone 0 .STK-MED ONE 02/24 2021 DC .ROUTE Methylprednisolone 125 MG ONCE ONE 02/24 194 DC 02/24 IV 02/24 Oxycodone HCl 5 MG Q6P PRN 02/24 2330 AC PO Patient Medication 1 ED .STK-MED ONE 02/25 1356 DC Teaching ED 02/25 1357 Phosphate 250 MG PC AND AT BEDTIME 02/25 0900 AC 02/25 PO 02/25 1801 1331 Potassium Chloride 40 MEQ ONCE ONE 02/25 0115 DC 02/25 PO 02/25 0116 0239 Prednisone 20 MG DAILY 02/25 1033 DC PO 03/01 1001 Sodium Chloride 2 SPRAY Q4P PRN 02/25 1200 AC YONATHAN Sodium Chloride 1,000 ML Q13H 02/25 0300 DC 02/25 IV 02/25 1559 0430 Sodium Chloride 1,000 ML BOLUS ONE 02/24 194 DC 02/24 IV 02/24 Past History Travel History Traveled to [place] past 21 day No Medical History Blood Transfusion Hx: No Neurological: NONE EENT: cataracts Cardiovascular: NONE Respiratory: bronchitis Gastrointestinal: NONE Hepatic: NONE Renal: NONE Musculoskeletal: NONE Psychiatric: NONE Endocrine: NONE Blood Disorders: NONE Cancer(s): NONE 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 Home Who Do You Live With? spouse Services at Home: None Primary Language: Pashto Smoking Status: Current Everyday Smoker ETOH Use: occasional use Illicit Drug Use: denies illicit drug use Functional Ability ADLs Independent: dressing, eating, toileting, bathing. Ambulation: independent IADLs Independent: shopping, housework, finances, food prep, telephone, transportation , medication admin. Exam & Diagnostic Data Vital Signs and I&O Vital Signs Date Time Temp Pulse Resp B/P Pulse O2 O2 Flow FiO2 Ox Delivery Rate 02/25 1447 97.4 102 20 120/60 92 Room Air 02/25 0639 97.4 93 20 138/70 92 Room Air 02/25 0500 Room Air 02/25 0140 97.5 111 22 120/60 93 Room Air 02/24 2316 99.0 120 20 136/64 93 Room Air 02/24 2216 91 02/24 2155 99.4 02/24 2142 Room Air 02/240 99.4 02/24 2049 101.5 02/24 1951 101.6 129 18 167/86 92 02/24 1951 91 02/24 1726 97.0 134 18 131/85 93 Room Air Intake & Output 02/25 1600 02/25 0800 02/25 0000 02/24 1600 02/24 0800 02/24 0000 Intake Total 883 431 0897 Output Total 400 Balance 550 -130 1350 Intake, IV 170 1350 Intake, Oral 550 100 Number 0 Bowel Movements Output, Urine 400 Patient 125 lb 120 lb Weight Physical Exam: General Appearance Alert, Oriented X3, Cooperative, No Acute Distress Skin seborrheic keratosis on the back HEENT Atraumatic, PERRLA, EOMI, Mucous Membr. moist/pink, tender frontal and maxillary sinus , postnasal drip Neck Supple, No JVD, +2 Carotid Pulse wo Bruit Lymphatic Axillary nl, Cervical nl Cardiovascular Irregular tachycardia, Normal S1, Normal S2, 1/6 systolic murmur Lungs diffuse decreased breath sound, mild accessory muscle use Abdomen Normal Bowel Sounds, Soft, No Tenderness Neurological Normal Speech Extremities No Edema Vascular Normal Pulses, Pulses Symmetrical Labs/Alvin Results: Laboratory Tests 02/25 02/25 0939 0740 Chemistry Sodium (137 - 145 mmol/L) 135 L Potassium (3.5 - 5.1 mmol/L) 4.1 Chloride (98 - 107 mmol/L) 100 Carbon Dioxide (22 - 30 mmol/L) 25 Anion Gap (5 - 16) 10 BUN (7 - 17 mg/dL) 12 Creatinine (0.5 - 1.0 mg/dL) 0.6 Estimated GFR (>60 ml/min) > 60 BUN/Creatinine Ratio (7 - 25 %) 20.0 Serum Osmolality Cancelled Troponin I (< 0.11 ng/ml) < 0.01 Hematology CBC w Diff NO MAN DIFF REQ WBC (4.8 - 10.8 /CUMM) 11.9 H RBC (4.20 - 5.40 /CUMM) 3.53 L Hgb (12.0 - 16.0 G/DL) 10.9 L Hct (37 - 47 %) 31.8 L MCV (81.0 - 99.0 FL) 90.3 MCH (27.0 - 31.0 PG) 31.0 RDW (11.5 - 14.5 %) 13.0 Plt Count (130 - 400 /CUMM) 144 MPV (7.4 - 10.4 FL) 9.7 Gran % (42.2 - 75.2 %) 95.4 H Lymphocytes % (20.5 - 51.1 %) 4.1 L Monocytes % (1.7 - 9.3 %) 0.5 L Eosinophils % (0 - 5 %) 0 Basophils % (0.0 - 2.0 %) 0 L Absolute Granulocytes (1.4 - 6.5 /CUMM) 11.4 H Absolute Lymphocytes (1.2 - 3.4 /CUMM) 0.5 L Absolute Monocytes (0.10 - 0.60 /CUMM) 0.1 L Absolute Eosinophils (0.0 - 0.7 /CUMM) 0 Absolute Basophils (0.0 - 0.2 /CUMM) 0 PUBS MCHC (33.0 - 37.0 G/DL) 34.3 Urines Urine Osmolality Cancelled 02/25 Chemistry Hemoglobin A1c Pending Urines Urine Color (YEL,AMB,STR) YEL Urine Clarity (CLEAR) CLEAR Urine pH (5.0 - 8.0) 6.0 Ur Specific [place] (1.001 - 1.035) 1.015 Urine Protein (NEG,<30 MG/DL) TRACE H Urine Ketones (NEG) TRACE H Urine Nitrite (NEG) NEG Urine Bilirubin (NEG) NEG Urine Urobilinogen (0.1 - 1.0 EU/dl) 0.2 Ur Leukocyte Esterase (NEG) NEG Ur Microscopic SEDIMENT EXAMINED Urine RBC (0 - 5 /HPF) 3-5 Urine WBC (0 - 2 /HPF) 1-3 H Ur Epithelial Cells (NONE,FEW) FEW Urine Hemoglobin (NEG) MOD H Urine Glucose (N MG/DL) NEG 02/24 Chemistry Sodium (137 - 145 mmol/L) 133 L Potassium (3.5 - 5.1 mmol/L) 3.3 L Chloride (98 - 107 mmol/L) 94 L Carbon Dioxide (22 - 30 mmol/L) 25 Anion Gap (5 - 16) 14 BUN (7 - 17 mg/dL) 13 Creatinine (0.5 - 1.0 mg/dL) 0.7 Estimated GFR (>60 ml/min) > 60 BUN/Creatinine Ratio (7 - 25 %) 18.6 Glucose (65 - 99 mg/dL) 144 H Lactic Acid (0.7 - 2.1 mmol/L) 0.7 Calcium (8.4 - 10.2 mg/dL) 8.2 L Phosphorus (2.5 - 4.5 mg/dL) 2.4 L Magnesium (1.6 - 2.3 mg/dL) 1.6 Total Bilirubin (0.2 - 1.3 mg/dL) 0.7 AST (14 - 36 U/L) 27 ALT (9 - 52 U/L) 33 Alkaline Phosphatase (<127 U/L) 95 Troponin I (< 0.11 ng/ml) < 0.01 [id number] Pept (<125 pg/mL) 2640 H Total Protein (6.3 - 8.2 g/dL) 5.9 L Albumin (3.5 - 5.0 g/dL) 3.0 L Globulin (1.9 - 4.2 gm/dL) 2.9 Albumin/Globulin Ratio (1.1 - 2.2 %) 1.0 L Hematology CBC w Diff NO MAN DIFF REQ WBC (4.8 - 10.8 /CUMM) 15.7 H RBC (4.20 - 5.40 /CUMM) 3.73 L Hgb (12.0 - 16.0 G/DL) 11.4 L Hct (37 - 47 %) 33.5 L MCV (81.0 - 99.0 FL) 89.8 MCH (27.0 - 31.0 PG) 30.5 RDW (11.5 - 14.5 %) 12.8 Plt Count (130 - 400 /CUMM) 157 MPV (7.4 - 10.4 FL) 9.3 Gran % (42.2 - 75.2 %) 87.4 H Lymphocytes % (20.5 - 51.1 %) 6.4 L Monocytes % (1.7 - 9.3 %) 6.1 Eosinophils % (0 - 5 %) 0 Basophils % (0.0 - 2.0 %) 0.1 Absolute Granulocytes (1.4 - 6.5 /CUMM) 13.7 H Absolute Lymphocytes (1.2 - 3.4 /CUMM) 1.0 L Absolute Monocytes (0.10 - 0.60 /CUMM) 1.0 H Absolute Eosinophils (0.0 - 0.7 /CUMM) 0 Absolute Basophils (0.0 - 0.2 /CUMM) 0 PUBS MCHC (33.0 - 37.0 G/DL) 34.0 Serology Virus Culture Pending Diagnostic Data EKG Results 1. ST with PACs and STTWCx 2. ST with atrial ectopy and Poor R progression with STT changes. 3. ST with PACs and brief episode of non sustained AF with probable LVh and STT changes. Assessment/Plan Assessment/Plan Assessment: 1. Worsening dyspnea. 2. Probable COPD 3. Abnormal ECG with Possible old ASMI, LVH and STT changes. 4. Probable brief episode of non sustained AF 5. Elevated proBNP Recommendations: - I suspect that the patient's symptoms are likely related to underlying COPD / pulmonary HTN. However, she has multiple other issues which raise the possibility of underlying cardiac disease (abnormal ECG, murmur, elevated proBNP , resting tachycardia, etc). In addition she has frequent atrial ectopy and resting sinus tachycardia with at least one episode suggesting non sustained SVT / possibly AF. - I discussed the situation with the patient, who is very anxious to go home. - If the patient is willing to stay in the hospital, she should have an echocardiogram to assess LV function and wall motion; valvular function and RV systolic pressure, etc. - At some point, she should also be considered for a baseline non contrast chest CT, PFTs, Pulmonary evaluation etc. - In view of the ? of brief PAF she should also have an outpatient Holter monitor. - If the patient does not have any evaluation prior to discharge, I will arrange the Holter, echo, CT and PFTs as an outpatient as well as followup with my office with consideration for eventual pharmacologic nuclear stress test. Consult Acknowledgment - Thank you for your consult request.
[2016-02-26 23:05] VITALS: BP 130/80
--- NOTE | 2016-02-27 05:35 | PN- Housestaff ---
KEVIN OJEDA 02/27/16 0534: Subjective Follow-up For: Abnormal EKG and elevated proBNP Bronchitis Complaints: no complaints Subjective: She was visited and interviewed this morning. Vital signs remained stable patient does not offer any particular complaints she denies any chest pain, palpitation, lightheadedness. Review of Systems Constitutional: Denies: chills, diaphoresis, fever, malaise, weakness, unexplained weight loss. EENTM: Denies: blurred vision, double vision, visual changes, eye pain, eye drainage, eye tearing, icterus, ear discharge, ear pain, ear redness, hearing changes, nasal congestion, epistaxis, nasal pain, throat pain, throat swelling, mouth pain, tooth pain. Cardiovascular: Denies: chest pain, edema, orthopena, palpitations, peripheral edema, syncope. Respiratory: Reports: cough, sputum production. Denies: no symptoms, see HPI, hemoptysis, orthopnea, short of breath, stridor, wheezing. Gastrointestinal: Denies: abdominal pain, bloating, constipation, diarrhea, distention, bowel incontinence, melena, nausea, bloody stool, changes in stool, vomiting, steatorrhea. Objective Last 24 Hrs of Vital Signs/I&O Vital Signs Date Time Temp Pulse Resp B/P Pulse O2 O2 Flow FiO2 Ox Delivery Rate 02/26 0000 95 Room Air 02/25 2305 98.0 83 18 130/80 95 Room Air 02/25 1447 97.4 102 20 120/60 92 Room Air Intake & Output 02/26 0800 02/26 0000 02/25 1600 Intake Total 125 700 550 Output Total Balance 125 700 550 Intake, Oral 125 700 550 Physical Exam General Appearance: Alert, Oriented X3, Cooperative, No Acute Distress Skin: No Rashes, No Breakdown, No Significant Lesion HEENT: Atraumatic, PERRLA, EOMI, Mucous Membr. moist/pink Neck: No JVD, No thryomegaly Lymphatic: Axillary nl, Cervical nl Cardiovascular: Normal S1, Normal S2, No Murmurs Lungs: Clear to Auscultation Abdomen: Soft, No Tenderness Neurological: Normal Speech, Normal Tone Extremities: No Edema Vascular: Normal Pulses Last 24 Hrs of Lab/Alvin Results Last 24 Hrs of Labs/Mics: Laboratory Tests 02/27/16 0619: Sodium Pending, Potassium Pending, Chloride Pending, Carbon Dioxide Pending, Anion Gap Pending, BUN Pending, Creatinine Pending, BUN/Creatinine Ratio Pending , CBC w Diff Pending, WBC Pending, RBC Pending, Hgb Pending, Hct Pending, MCV Pending, MCH Pending, RDW Pending, Plt Count Pending, MPV Pending, PUBS MCHC Pending 02/26/16 0939: Serum Osmolality Cancelled, Urine Osmolality Cancelled 02/26/16 0740: Anion Gap 10, Estimated GFR > 60, BUN/Creatinine Ratio 20.0, Troponin I < 0.01, CBC w Diff NO MAN DIFF REQ, RBC 3.53 L, MCV 90.3, MCH 31.0, RDW 13.0, MPV 9.7, Gran % 95.4 H, Lymphocytes % 4.1 L, Monocytes % 0.5 L, Eosinophils % 0, Basophils % 0 L, Absolute Granulocytes 11.4 H, Absolute Lymphocytes 0.5 L, Absolute Monocytes 0.1 L, Absolute Eosinophils 0, Absolute Basophils 0, PUBS MCHC 34.3 Assessment/Plan Assessment: 70 y/o woman without significant past medical history presented with labored breathing and worsening orthopnea, preceded by her upper respiratory tract symptoms infection (productive cough with green sputum denies fever and chills). 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 Recently had an outbreak of upper respiratory tract infection. He was evaluated in the emergency room and found to be tachycardic. She denies chest pain, chest congestion, leg swelling, dyspnea on exertion, palpitation, dizziness. Long-standing smoking history. A and P 70-year-old man with history of prolonged smoking/not clear medical record presented with worsening the septae on exertion and orthopnea, was preceded by an acute upper respiratory tract infection. List of differential diagnosis: #1 bronchitis, #2 COPD(long-time smoker; no official diagnosis of COPD); #1 suspected acute bronchitis: * Patient could be switched to by mouth prednisone 40 mg for 5 days * Continue IV antibiotics * Refer to certified medical technician to follow-up; patient needs baseline pulmonary function test and his spirometry * Low-dose CT scan for cancer screening as an outpatient * Continue guanfenesine ER Tab 600 Q12 * Albuterol inhaler 3 mL every 6h as needed * TRC nebulizer [id number] as needed #3 tachycardia elevated proBNP and abnormal EKG: patient has sinus tachycardia, and orthopnea+ elevated pro-bnp and Hx of smoking+ hypertension * Follow cardiology recommendation * Follow echo results * She wanted to leave the hospital, CMR is ready #4 Hyponatremia- resolved #5 DVT prophylaxis with Lovenox, adequate pain control. Problem List: 1. Bronchitis 2. Upper respiratory infection with cough and congestion 3. Elevated brain natriuretic peptide (BNP) level 4. Abnormal EKG Pain Ratin Pain Location: Left knee Pain Goal: Pain 4 or less Pain Plan: Tylenol 650 every 6 as needed Discharge Plan Discharge Disposition: home Stable for Discharge? Yes Anticipated Discharge (Day): tomorrow CLARENCE DUTTA,[facility] 02/27/16 1108: Assessment/Plan Tomorrow's Labs & Rationales: CBC needed as she does have leukocytosis today. Attending MD Review Statement Attending Statement Attending MD Statement: examined this patient, discuss w/resident/PA/REGIONAL FLATBED TRUCK DRIVER, agreed w/resident/PA/REGIONAL FLATBED TRUCK DRIVER, reviewed EMR data (avail), discussed with nursing, discussed with case mgmt, reviewed images, amended to note Attending Assessment/Plan: Patient seen and examined, feeling slightly better but not completely back to baseline yet still feeling some nasal congestion, sinus congestion and some shortness of breath. Appreciate cardiology input. Vital Signs Date Time Temp Pulse Resp B/P Pulse O2 O2 Flow FiO2 Ox Delivery Rate 02/26 0800 Room Air 02/26 0719 97.7 86 16 140/72 92 Room Air 02/26 0000 95 Room Air 02/25 2305 98.0 83 18 130/80 95 Room Air 02/25 1447 97.4 102 20 120/60 92 Room Air on exam: aox3, nad. cv; s1,s2, soft systolic murmur. resp; overall decraesed bs. abd; soft, nt, bs+ ext; no edema. Laboratory Tests 02/26 0619 Chemistry Sodium (137 - 145 mmol/L) 136 L Potassium (3.5 - 5.1 mmol/L) 4.4 Chloride (98 - 107 mmol/L) 101 Carbon Dioxide (22 - 30 mmol/L) 26 Anion Gap (5 - 16) 10 BUN (7 - 17 mg/dL) 23 H Creatinine (0.5 - 1.0 mg/dL) 0.7 Estimated GFR (>60 ml/min) > 60 BUN/Creatinine Ratio (7 - 25 %) 32.9 H Hematology CBC w Diff MAN DIFF ORDERED WBC (4.8 - 10.8 /CUMM) 18.0 H RBC (4.20 - 5.40 /CUMM) 3.44 L Hgb (12.0 - 16.0 G/DL) 10.7 L Hct (37 - 47 %) 31.0 L MCV (81.0 - 99.0 FL) 89.9 MCH (27.0 - 31.0 PG) 31.0 RDW (11.5 - 14.5 %) 13.4 Plt Count (130 - 400 /CUMM) 168 MPV (7.4 - 10.4 FL) 10.2 Gran % (42.2 - 75.2 %) 90.7 H Lymphocytes % (20.5 - 51.1 %) 5.5 L Monocytes % (1.7 - 9.3 %) 3.6 Eosinophils % (0 - 5 %) 0 Basophils % (0.0 - 2.0 %) 0.2 Absolute Granulocytes (1.4 - 6.5 /CUMM) 16.3 H Segmented Neutrophils (42.2 - 75.2 %) 86 H Band Neutrophils (0.0 - 5.0 %) 5 Absolute Lymphocytes (1.2 - 3.4 /CUMM) 1.0 L Lymphocytes (20.5 - 51.1 %) 4 L Monocytes (1.7 - 9.3 %) 5 Absolute Monocytes (0.10 - 0.60 /CUMM) 0.6 Absolute Eosinophils (0.0 - 0.7 /CUMM) 0 Absolute Basophils (0.0 - 0.2 /CUMM) 0 Platelet Estimate (ADEQUATE) VERIFIED BY SMEAR Normocytic RBCs VERIFIED Normochromic RBCs VERIFIED PUBS MCHC (33.0 - 37.0 G/DL) 34.5 A/P; 70-year-old female with no significant past medical history who was originally admitted with some shortness of breath at an acute bronchitis. ProBNP was also high therefore cardiology was consulted. Currently getting treated with IV steroids. Recommend continuing Solu-Medrol 40 mg daily today. Patient still to get echocardiogram. Appreciate cardiology input. Dr. Hernandez recommends that patient should have CT chest, pulmonary function testing as well as likely hold and monitor nuclear stress test as an outpatient. She will also need a pulmonology evaluation as an outpatient. Continue azithromycin to complete a total of 5 day course. Continue TRC nebs. We also started the patient on fluticasone nasal spray as well as saline nasal spray to help her with stuffy nose. She has leukocytosis which likely is related to steroids but will recheck CBC in the morning DVT prophylaxis: Heparin subcutaneous. Likely discharge tomorrow.
[2016-02-27 07:19] VITALS: BP 140/72
[2016-02-27 08:13] LABS: ABSOLUTE BASOPHIL COUNT 0 /CUMM (0.0-0.2); ABSOLUTE EOSINOPHIL COUNT 0 /CUMM (0.0-0.7); ABSOLUTE GRANULOCYTE CT 16.3 /CUMM (1.4-6.5); ABSOLUTE MONOCYTE COUNT 0.6 /CUMM (0.10-0.60); BASOPHIL % 0.2 % (0.0-2.0); EOSINOPHIL % 0 % (0-5); GRANULOCYTE % 90.7 % (42.2-75.2); MEAN CORPUSCULAR HGB CONC 34.5 G/DL (33.0-37.0); MEAN CORPUSCULAR VOLUME 89.9 FL (81.0-99.0); MEAN PLATELET VOLUME 10.2 FL (7.4-10.4); PLATELET COUNT 168 /CUMM (130-400); RBC DISTRIBUTION WIDTH 13.4 % (11.5-14.5); RED BLOOD CELL CT 3.44 /CUMM (4.20-5.40)
[2016-02-27 14:55] VITALS: BP 128/64
[2016-02-27 22:07] VITALS: BP 138/76
[2016-02-28 06:54] VITALS: BP 150/80
--- NOTE | 2016-02-28 08:37 | PN- Housestaff ---
LISBETH FLORES 02/28/16 0837: Subjective Follow-up For: Abnormal EKG and elevated proBNP Bronchitis Subjective: seen and examined patient. offers no complaints. Review of Systems Constitutional: Denies: chills, diaphoresis, fever, malaise, weakness, unexplained weight loss. Cardiovascular: Denies: chest pain, edema, orthopena, palpitations, peripheral edema, syncope. Respiratory: Denies: cough, hemoptysis, orthopnea, short of breath, sputum production, stridor, wheezing. Objective Last 24 Hrs of Vital Signs/I&O Vital Signs Date Time Temp Pulse Resp B/P Pulse O2 O2 Flow FiO2 Ox Delivery Rate 02/27 0800 Room Air 02/27 0654 97.9 92 16 150/80 93 Room Air 02/27 0000 Room Air 02/26 2207 97.6 88 18 138/76 92 Room Air 02/26 1600 96 Room Air 02/26 1455 98.1 100 20 128/64 94 Intake & Output 02/27 1600 02/27 0800 02/27 0000 Intake Total 100 100 Output Total Balance 100 100 Intake, Oral 100 100 Physical Exam General Appearance: Alert, Oriented X3, Cooperative, No Acute Distress Cardiovascular: Regular Rate, Normal S1, Normal S2 Lungs: Clear to Auscultation, Normal Air Movement Abdomen: Normal Bowel Sounds, Soft, No Tenderness Extremities: No Edema Current Medications: Current Medications Sig/Donato Start time Last Medication Dose Route Stop Time Status Admin Acetaminophen 650 MG Q6P PRN 02/24 2330 AC PO Acetaminophen/ 1 TAB Q6P PRN 02/25 1030 AC Hydrocodone Bitart PO Albuterol Sulfate 3 ML Q6 PRN 02/25 1030 AC INH Azithromycin 250 MG DAILY 02/25 1031 AC 02/27 PO 03/01 1001 0929 Fluticasone 2 SPRAY DAILY 02/26 1013 AC 02/27 Propionate YONATHAN 0930 Guaifenesin 10 ML Q6P PRN 02/27 0645 AC 02/27 PO 0634 Guaifenesin 600 MG Q12 02/25 0100 AC 02/27 PO 0929 Heparin Sodium 5,000 UNIT Q8 02/24 2321 AC 02/27 (Porcine) SC 0629 Magnesium Oxide 400 MG DAILY 02/25 0200 AC 02/27 PO 0929 Methylprednisolone 40 MG DAILY 02/25 1156 AC 02/27 IV 0929 Oxycodone HCl 5 MG Q6P PRN 02/24 2330 AC PO Sodium Chloride 2 SPRAY Q4P PRN 02/25 1200 AC 02/27 YONATHAN 0933 Last 24 Hrs of Lab/Alvin Results Last 24 Hrs of Labs/Mics: Laboratory Tests 02/28/16 0725: Anion Gap 11, Estimated GFR > 60, BUN/Creatinine Ratio 28.8 H, CBC w Diff NO MAN DIFF REQ, RBC 3.56 L, MCV 89.8, MCH 30.7, RDW 13.3, MPV 9.8, Gran % 84.7 H , Lymphocytes % 9.6 L, Monocytes % 5.5, Eosinophils % 0.1, Basophils % 0.1, Absolute Granulocytes 11.7 H, Absolute Lymphocytes 1.3, Absolute Monocytes 0.8 H, Absolute Eosinophils 0, Absolute Basophils 0, PUBS MCHC 34.2 Assessment/Plan Assessment: 70 y/o woman with long standing smoking history without significant past medical history presented with worsening dyspnea. Echo done today. Medically cleared for discharge today plan #Bronchitis: * Patient could be switched to by mouth prednisone and will be discharged on a taper * course of azithro for a total of 5days * Referral to oil well perforator operator for baseline pulmonary function test and his spirometry * Low-dose CT scan for cancer screening as an outpatient * Continue guanfenesine ER Tab 600 Q12 * Albuterol inhaler 3 mL every 6h as needed * TRC nebulizer [id number] as needed #3 tachycardia elevated proBNP and abnormal EKG: * cardio on board * Follow echo results #4 Hyponatremia- resolved #5 DVT prophylaxis with Lovenox, adequate pain control. Problem List: 1. Bronchitis 2. Elevated brain natriuretic peptide (BNP) level 3. Abnormal EKG Pain Ratin Pain Location: na Pain Goal: Pain 4 or less Pain Plan: Current regimen Tomorrow's Labs & Rationales: nonr required CLARENCE DUTTA,[facility] 02/28/16 1414: Attending MD Review Statement Attending Statement Attending MD Statement: examined this patient, discuss w/resident/PA/ASSOCIATE PROFESSOR OF AUTOMATION, agreed w/resident/PA/ASSOCIATE PROFESSOR OF AUTOMATION, reviewed EMR data (avail), discussed with nursing, discussed with case mgmt, reviewed images, amended to note Attending Assessment/Plan: Patient seen and examined, overall feeling better. Not requiring any oxygen. Echo cardio Presley was done this morning. Patient will follow Dr. Hernandez as an outpatient for the results of the echo. Patient is medically stable for discharge today on oral steroids and antibiotics. Patient should also follow with Dr. Upton as an outpatient. She will follow with her primary care doctor.
[2016-02-28 08:52] LABS: ABSOLUTE BASOPHIL COUNT 0 /CUMM (0.0-0.2); ABSOLUTE EOSINOPHIL COUNT 0 /CUMM (0.0-0.7); ABSOLUTE GRANULOCYTE CT 11.7 /CUMM (1.4-6.5); ABSOLUTE LYMPH COUNT 1.3 /CUMM (1.2-3.4); ABSOLUTE MONOCYTE COUNT 0.8 /CUMM (0.10-0.60); BASOPHIL % 0.1 % (0.0-2.0); EOSINOPHIL % 0.1 % (0-5); GRANULOCYTE % 84.7 % (42.2-75.2); MEAN CORPUSCULAR HGB 30.7 PG (27.0-31.0); MEAN CORPUSCULAR HGB CONC 34.2 G/DL (33.0-37.0); MEAN CORPUSCULAR VOLUME 89.8 FL (81.0-99.0); MEAN PLATELET VOLUME 9.8 FL (7.4-10.4); PLATELET COUNT 193 /CUMM (130-400); RBC DISTRIBUTION WIDTH 13.3 % (11.5-14.5); RED BLOOD CELL CT 3.56 /CUMM (4.20-5.40)
[2016-02-28 09:56] LABS: WHITE BLOOD CELL COUNT 13.9 /CUMM (4.8-10.8)
[2016-02-28] MEDS ORDERED: DEEP SEA44 ML NAS (11:22)
[2016-02-28] MEDS ORDERED: FLUTICASONE PRO16 GM NAS (11:22)
[2016-02-28] MEDS ORDERED: PREDNISONE5 M1 PO (11:22)
[2016-02-28] MEDS ORDERED: AZITHROMYCIN250 M1 PO (11:22)
--- NOTE | 2016-02-28 15:32 | ECHOCARDIOGRAM REPORT ---
KASANDRA BAH Age: 70 : 1945 Gender: F Exam Date: 02/28/2016 09:50 Exam Location: [place] Ht (in): 62 Wt (lb): 120 BSA: 1.55 BP: 150 / 80 Ordering Physician: KEVIN OJEDA MD Referring Physician: Ashwini Hernandez MD Technologist: Luz Maria Benjamin [facility] Room Number: 232 Indications: SHORTNESS OF BREATH Rhythm: Sinus Technical Quality: Fair FINDINGS Left Ventricle Normal size left ventricle. Mildly reduced global left ventricular systolic function. Mildly abnormal left ventricular ejection fraction estimated at 45-50%. Left ventricular wall thickness increased. Right Ventricle Normal right ventricular size and function. Right Atrium Mild right atrial dilatation. Left Atrium Moderate left atrial dilatation. Mitral Valve Mild thickening/calcification of the anterior mitral valve leaflet. Moderate mitral annular calcification. Aortic Valve Trileaflet aortic valve. Diffuse thickening (sclerosis) of the aortic valve cusps without reduced excursion. No aortic stenosis. No aortic regurgitation. Tricuspid Valve Moderate tricuspid regurgitation. Right ventricular systolic pressure estimated to be elevated at 58mmHg. Pulmonic Valve Pulmonic valve not well visualized, grossly normal. Pericardium No pericardial effusion. Great Vessels Aortic root and proximal ascending aorta not well visualized, grossly normal. CONCLUSIONS 1. Moderate aortic sclerosis is present with no valvular stenosis or insufficiency. 2. Thickening and calcification of the mitral leaflets is present with moderate anular calcification and moderate mitral insufficiency with moderate left atrial enlargement. 3. There is no significant pericardial fluid present. 4. The left ventricular chamber size is normal sith mild LVH and mild global hypokinesia which is slightly worse in the anteroapical segments. The estimated ejection fraction is approximately 45%. MIld diastolic dysfunction is present. 5. Thickening of the tricuspid leaflets is present with mOderate tricuspid insufficiency is present with right atrial enlargement and pulmonary hypertension with an estimated RV systolic pressure of at least 58 mmHg. 6. Color flow imaging suggests the presence of a small shunt in the mid atrial septum consistent with the presence of a PFO. Ashwini Hernandez M.D. (Electronically Signed) Final Date: 28 February 2016 15:31 MEASUREMENTS (Male / Female) Normal Values 2D ECHO LV Diastolic Diameter PLAX 4.2 cm 4.2 - 5.9 / 3.9 - 5.3 cm LV Systolic Diameter PLAX 3.1 cm 2.1 - 4.0 cm LV Fractional Shortening PLAX 26.2 % 25 - 46 % LV Ejection Fraction 2D Teich 51.7 % IVS Diastolic Thickness 0.7 cm LVPW Diastolic Thickness 0.9 cm LV Relative Wall Thickness 0.4 RV Internal Dim ED PLAX 2.3 cm 1.9 - 3.8 cm LVOT Diameter 1.9 cm Aortic Root Diameter 2.7 cm LA Systolic Diameter LX 3.6 cm 3.0 - 4.0 / 2.7 - 3.8 cm LV Ejection Fraction MOD BP 46.8 % >= 55 % LV Diastolic Length 4C 5.5 cm 6.9 - 10.3 cm LV Diastolic Area 4C 17.8 cm LV Diastolic Volume MOD 4C 47.0 cm LV Ejection Fraction MOD 4C 40.4 % LV Stroke Volume MOD 4C 19.0 cm LV Systolic Length 4C 5.4 cm LV Systolic Area 4C 13.5 cm LV Systolic Volume MOD 4C 28.0 cm LV Ejection Fraction MOD 2C 50.7 % LV Diastolic Volume 4C AL 48.6 cm 85 - 139 / 69 - 109 cm LV Systolic Volume 4C AL 28.8 cm LV Ejection Fraction 4C AL 40.7 % LV Stroke Volume 4C AL 19.8 cm LV Ejection Fraction 2C AL 51.7 % LA Volume 46.0 cm 18 - 58 / 22 - 52 cm Ascending Aorta Diameter 3.1 cm DOPPLER AV Peak Velocity 157.0 cm/s AV Peak Gradient 9.9 mmHg AV Mean Velocity 101.0 cm/s AV Mean Gradient 5.0 mmHg AV Velocity Time Integral 31.9 cm LVOT Peak Velocity 145.0 cm/s LVOT Peak Gradient 8.4 mmHg LVOT Mean Velocity 80.3 cm/s LVOT Mean Gradient 3.0 mmHg LVOT Velocity Time Integral 26.5 cm LVOT Stroke Volume 75.1 cm AV Area Cont Eq vti 2.4 cm AV Area Cont Eq pk 2.6 cm MV Peak Velocity 183.0 cm/s MV Peak Gradient 13.4 mmHg MV Mean Velocity 110.0 cm/s MV Mean Gradient 6.0 mmHg Mitral E Point Velocity 116.0 cm/s Mitral A Point Velocity 138.0 cm/s Mitral E to A Ratio 0.8 MV PHT Velocity 164.0 cm/s MV Deceleration [place] 849.0 cm/s MV Pressure Half Time 58.0 ms MV Area PHT 3.8 cm MV Deceleration Time 177.0 ms TR Peak Velocity 337.0 cm/s TR Peak Gradient 45.4 mmHg Right Atrial Pressure 10.0 mmHg Pulmonary Artery Systolic Pressu 55.4 mmHg Right Ventricular Systolic Press 55.4 mmHg PV Peak Velocity 81.6 cm/s PV Peak Gradient 2.7 mmHg PV Mean Velocity 59.1 cm/s PV Mean Gradient 2.0 mmHg PV Velocity Time Integral 16.7 cm LV E' Lateral Velocity 8.1 cm/s Mitral E to LV E' Lateral Ratio 14.3 LV E' Septal Velocity 7.3 cm/s Mitral E to LV E' Septal Ratio 15.9
== END 2016-02-28 13:07 | DRG 202 ==
LOC: ENRESERVTM → ENRESERVDT → ERH 16:51 → ERHI 23:00 → 2NA 23:00 → ENPENDDIS 23:00 → 2NA 02-26 01:37
PROVIDERS: Internal Medicine Hematology & Oncology; Physician Assistant Medical; Student in an Organized Health Care Education/Training Program; ADMIT Internal Medicine
DX: J20.9 Acute bronchitis, unspecified (principal); E87.1 Hypo-osmolality and hyponatremia; E87.6 Hypokalemia; R00.0 Tachycardia, unspecified; F17.200 Nicotine dependence, unspecified, uncomplicated; E83.42 Hypomagnesemia; E83.39 Other disorders of phosphorus metabolism
CPT/HCPCS: 2NAP; 84133; 84300; ERO; 36415; 81001; 82436; 82570; 87040; 87070; 87086; 87449; 87450; 87804; 87804-59; 93005; 93010; 93306; 96374; 96375; J0456; J0696; J1644; J2920; J2930; J7060